=== PATIENT | female | born 1955 | race Caucasian/White ===

== ENCOUNTER 2016-04-20 10:26 | Outpatient (CLI) | payer OTHER ==
--- NOTE | 2016-04-20 11:33 | DIAGNOSTIC IMAGING REPORT ---
PROCEDURE: MG BILATERAL SCREENING W/CAD INDICATION: Screening. Family history breast carcinoma (aunts, cousins). TECHNIQUE: Bilateral CC and MLO digital views. COMPARISON: Compared to 04/13/2014, 01/21/2013, and 01/30/2008. FINDINGS: Computer-aided detection applied. Mildly dense with a few dystrophic calcifications. No change. IMPRESSION: 1. Negative mammogram. RESULT CODE: 1- Negative. A. A negative report should not delay biopsy if a dominant or clinically suspicious mass is present. 10-15% of cancers are not identified by x-ray. B. A negative report may reinforce clinical impression. C. Adenosis and dense breasts may obscure an underlying neoplasm. D. False positive reports average 6-10%. E.. A yearly screening mammogram is recommended. A reminder letter will be scheduled.
--- NOTE | 2016-04-20 13:08 | DIAGNOSTIC IMAGING REPORT ---
PROCEDURE: US SOFT TISSUE THYR/NECK/HEAD INDICATION: DYSPHAGIA TECHNIQUE: Turcios scale and color Doppler sonographic images of the thyroid gland were obtained. COMPARISON: None. FINDINGS: RIGHT LOBE: Measures 4.8 x 1.8 mid pole hypoechoic well marginated bilobed nodule versus two adjacent nodules, with calcification. LEFT LOBE: Status post thyroidectomy ISTHMUS: Measures 0.1 cm. IMPRESSION: 1. Right thyroid lobe nodularity most consistent with adenoma/s 2. Left thyroidectomy
[2016-07-17] MEDS ORDERED: CENTRUM SILVER PO (10:13)
[2016-07-17] MEDS ORDERED: VITAMIN B-12250 MCG PO (10:13)
[2016-07-17] MEDS ORDERED: LEVO-T125 MCG PO (10:14)
[2016-07-17] MEDS ORDERED: MAGNESIUM GLUC250 MG PO (10:15)
[2016-07-17] MEDS ORDERED: OCUVITE LUTEIN PO (10:16)
[2016-07-17] MEDS ORDERED: POTASSIUM CHLO10 ME2 PO (10:16)
[2016-07-17] MEDS ORDERED: ZYRTEC ALLERGY10 MG PO (10:17)
[2016-07-17] MEDS ORDERED: COUMADIN5 MG PO (10:17)
[2016-07-17] MEDS ORDERED: MAXZIDE-25 PO (10:17)
[2016-07-17] MEDS ORDERED: TIMOLOL MALEATE0.5 % OP (14:24)
== END 2016-04-20 23:00 ==
LOC: MAM SRH 10:26
DX: Z12.31 Encounter for screening mammogram for malignant neoplasm of breast (principal); Z80.3 Family history of malignant neoplasm of breast; E07.9 Disorder of thyroid, unspecified

== ENCOUNTER 2016-08-11 13:48 | Outpatient (CLI) | payer OTHER ==
[~2016-08-11 13:48] MED LIST: CENTRUM SILVER PO; COUMADIN5 MG PO; LEVO-T125 MCG PO; MAGNESIUM GLUC250 MG PO; MAXZIDE-25 PO; OCUVITE LUTEIN PO; POTASSIUM CHLO10 ME2 PO; TIMOLOL MALEATE0.5 % OP; VITAMIN B-12250 MCG PO; ZYRTEC ALLERGY10 MG PO
--- NOTE | 2016-08-11 16:06 | DIAGNOSTIC IMAGING REPORT ---
PROCEDURE: CT ABDOMEN/PELVIS W/O CONTRAST INDICATION: L UPPER ABD PAIN TECHNIQUE: Axial CT images were obtained through the abdomen and pelvis without IV contrast. Coronal and sagittal reformations were created. COMPARISON: None. FINDINGS: Clear lung bases. Normal size heart. No hiatal hernia. There are surgical changes of gastric bypass, cholecystectomy, and ventral abdominal wall hernia repair with mesh. Liver, adrenal glands, spleen, pancreas, abdominal aorta, vena cava, and ureters appear normal. Tiny exophytic cortical cyst arising from the lower pole of the right kidney, and tiny cortical fat focus in the upper pole of the left kidney. Small left lower pole collecting system parapelvic cyst. Other than surgical changes, normal upper bowel loops. In the patient's area of left upper quadrant pain/lump, there is no visible abdominal wall defect, subcutaneous mass, or focal inflammation. There is a right rectus muscle atrophy and considerable thinning of the right lateral abdominal wall with a few small areas of probable abdominal wall defects (series 5 images 46-48, and 38 and 39). The lower aspect of the mesh appears to have pulled away from the anterior abdominal wall and there is peritoneal fat which comes from right lateral to just anterior to the mesh in the low pelvis. This is best seen on axial series 5 images 67 through 72. Minuscule fat containing midline hernia from around the mesh, (series 5 image 68, and sagittal series 602 image 46), which does not change with Valsalva maneuver. Good visualization of pelvic structures is obscured by beam hardening artifact from bilateral hip arthroplasties. The visible urinary bladder vaginal canal, distal rectum all demonstrate pelvic floor prolapse. There is mild to moderate sigmoid diverticulosis. Benign bone island in L4. Ankylosis of L5-S1. Mild degenerative endplate change in the lower thoracic spine. No suspicious calcifications, free fluid, or mass. IMPRESSION: 1. No evidence of abdominal wall hernia in the left upper quadrant. 2. Status post large mesh hernia repair of the anterior abdominal wall with slight dorsal displacement of the lower aspect of the mesh which allows for a small, fat containing low midline anterior abdominal wall hernia. 3. There is right rectus atrophy and thinning of the right lateral abdominal wall. 4. Surgical changes of gastric bypass, cholecystectomy, and bilateral hip arthroplasties. All CT scans at this facility use dose modulation, iterative reconstruction, and/or weight-based dosing when appropriate to reduce radiation dose to as low as reasonably achievable.
--- NOTE | 2016-08-11 16:33 | DIAGNOSTIC IMAGING REPORT ---
PROCEDURE: MG UNILATERAL DIAG-LT W/CAD INDICATION: LEFT AXILLA PAIN and left breast rash. TECHNIQUE: Standard CC, MLO, and direct lateral mammograms of the left breast. CAD was used. The patient then went to ultrasound where mabry-scale and color Doppler sonographic imaging of the left axilla was performed. COMPARISON: 04/20/2016, 04/13/2014, 01/21/2013 FINDINGS: Mammograms: Mildly dense fibroglandular tissue is present. Scattered vascular and dystrophic calcifications are present. No developing density, area of architectural distortion, or suspicious microcalcification. Benign axillary lymph nodes are visible on the MLO view. Ultrasound: Within the left axilla, there are multiple benign appearing lymph nodes. The patient's area of tenderness corresponds to a normal-appearing, benign lymph node without significant cortical thickening measuring 1.4 x 1.6 cm. There is normal vascular flow to the hilum. No cortical hyperemia. There are no suspicious masses or cysts in the region of pain. IMPRESSION: 1. Reactive, tender lymph node in the left axilla corresponds the patient's area of pain. 2. Stable left breast mammogram without evidence of malignancy. 3. Clinical follow-up suggested for left axillary pain. Additionally, the patient can return to yearly screening mammography (March,). Findings and recommendations discussed with the patient. RESULT CODE: 2- Benign findings. A. A negative report should not delay biopsy if a dominant or clinically suspicious mass is present. 10-15% of cancers are not identified by x-ray. B. A negative report may reinforce clinical impression. C. Adenosis and dense breasts may obscure an underlying neoplasm. D. False positive reports average 6-10%. E.. A yearly screening mammogram is recommended. A reminder letter will be scheduled.
== END 2016-08-11 23:00 ==
LOC: MAM SRH 13:48
DX: R10.12 Left upper quadrant pain (principal); M62.58 Muscle wasting and atrophy, not elsewhere classified, other site; M79.622 Pain in left upper arm; Z98.890 Other specified postprocedural states; Z98.84 Bariatric surgery status